=== PATIENT | female | born 1945 | race Caucasian/White ===

== ENCOUNTER 2018-04-12 13:49 | Inpatient (IN) | payer OTHER ==
[~2018-04-12] VITALS: Ht 154.9 cm; Wt 89.0 kg
[2018-04-12 14:06] VITALS: Ht 154.9 cm; Wt 89.0 kg
[2018-04-12 15:02] LABS: BASOPHIL % 0.4 % (0-2); PLATELET COUNT 206 x10^3mcL (130-400); RED CELL DISTRIBUTION WIDTH 13.8 % (11.5-14.5)
[2018-04-12 15:05] LABS: CALCIUM 7.9 mg/dL (8.5-10.1); CARBON DIOXIDE 19.4 mmol/L (21-32); CHLORIDE SERUM 103 mmol/L (98-107); CREATININE SERUM 0.8 mg/dL (0.6-1.0); GLUCOSE SERUM 129 mg/dL (74-106); POTASSIUM SERUM 3.7 mmol/L (3.5-5.1); SODIUM SERUM 136 mmol/L (136-145)
[2018-04-12 15:10] LABS: ALBUMIN 3.3 g/dL (3.4-5.0); ALKALINE PHOSPHATASE 107 U/L (46-116); ALT/SGPT 39 U/L (14-59); AST/SGOT 36 U/L (15-37); BILIRUBIN TOTAL 0.7 mg/dL (0.20-1.00); CHOLESTEROL 158 mg/dL (<200); HDL CHOLESTEROL 26 mg/dL (40-60); PHOSPHOROUS 3.8 mg/dL (2.5-4.9); TOTAL PROTEIN, SERUM 6.9 g/dL (6.4-8.2); URIC ACID 6.4 mg/dL (2.6-6.0)
[2018-04-12] MEDS ORDERED: METFORMIN HYDR500 M1 PO (18:30)
[2018-04-12] MEDS ORDERED: GLUCOTROL5 MG PO (18:31)
[2018-04-12] MEDS ORDERED: DITROPAN XL10 MG PO (18:31)
[2018-04-12] MEDS ORDERED: COZAAR100 MG PO (18:31)
[2018-04-12] MEDS ORDERED: ASPIR 8181 MG PO (18:32)
[2018-04-12] MEDS ORDERED: VERAPAMIL HYDR240 MG PO (18:32)
[2018-04-12] MEDS ORDERED: D-10001 TAB PO (18:33)
[2018-04-12 18:59] VITALS: BP 132/90
[2018-04-12 19:00] VITALS: BP 129/78
[2018-04-12 21:01] VITALS: BP 124/75
[2018-04-13 05:05] VITALS: BP 107/71
[2018-04-13 07:20] LABS: BASOPHIL % 0.4 % (0-2); PLATELET COUNT 183 x10^3mcL (130-400); RED CELL DISTRIBUTION WIDTH 14.3 % (11.5-14.5)
[2018-04-13 07:30] LABS: ALKALINE PHOSPHATASE 79 U/L (46-116); ALT/SGPT 31 U/L (14-59); AST/SGOT 28 U/L (15-37); BILIRUBIN TOTAL 0.4 mg/dL (0.20-1.00); CALCIUM 7.1 mg/dL (8.5-10.1); CARBON DIOXIDE 23.2 mmol/L (21-32); CHLORIDE SERUM 105 mmol/L (98-107); CREATININE SERUM 0.9 mg/dL (0.6-1.0); GLUCOSE SERUM 138 mg/dL (74-106); SODIUM SERUM 137 mmol/L (136-145)
[2018-04-13 07:37] LABS: ALBUMIN 2.8 g/dL (3.4-5.0); TOTAL PROTEIN, SERUM 5.8 g/dL (6.4-8.2)
[2018-04-13 09:28] VITALS: BP 115/63
[2018-04-13 18:05] VITALS: BP 130/72
[2018-04-13 21:12] VITALS: BP 128/67
[2018-04-14 05:32] VITALS: BP 114/69
[2018-04-14 05:51] LABS: BASOPHIL % 0.2 % (0-2); PLATELET COUNT 179 x10^3mcL (130-400); RED CELL DISTRIBUTION WIDTH 14.1 % (11.5-14.5)
[2018-04-14 05:54] LABS: ALKALINE PHOSPHATASE 77 U/L (46-116); ALT/SGPT 36 U/L (14-59); AST/SGOT 40 U/L (15-37); BILIRUBIN TOTAL 0.34 mg/dL (0.20-1.00); CALCIUM 8.2 mg/dL (8.5-10.1); CARBON DIOXIDE 23.6 mmol/L (21-32); CHLORIDE SERUM 107 mmol/L (98-107); CREATININE SERUM 0.8 mg/dL (0.6-1.0); GLUCOSE SERUM 133 mg/dL (74-106); POTASSIUM SERUM 4.2 mmol/L (3.5-5.1); SODIUM SERUM 137 mmol/L (136-145)
[2018-04-14 05:59] LABS: ALBUMIN 2.7 g/dL (3.4-5.0); TOTAL PROTEIN, SERUM 5.8 g/dL (6.4-8.2)
[2018-04-14 10:13] VITALS: BP 112/68
[2018-04-14 13:42] VITALS: BP 105/70
[2018-04-14 17:20] VITALS: BP 90/48
[2018-04-14 17:27] VITALS: BP 103/49
[2018-04-14 20:00] VITALS: BP 102/52
[2018-04-15 06:01] VITALS: BP 100/61
[2018-04-15 06:06] VITALS: BP 105/62
[2018-04-15 09:38] VITALS: BP 102/54
[2018-04-15 11:00] LABS: BASOPHIL % 0.3 % (0-2); PLATELET COUNT 189 x10^3mcL (130-400); RED CELL DISTRIBUTION WIDTH 14.1 % (11.5-14.5)
[2018-04-15 12:18] VITALS: BP 131/69
[2018-04-15 13:52] VITALS: BP 131/69
== END 2018-04-15 16:00 | disposition short-term general hospital (02) | DRG 377 ==
LOC: ED 13:49 → DU 17:48
PROVIDERS: Emergency Medicine; Internal Medicine Nephrology; Internal Medicine Pulmonary Disease
DX: K92.2 Gastrointestinal hemorrhage, unspecified (principal); Q25.72 Congenital pulmonary arteriovenous malformation; J96.11 Chronic respiratory failure with hypoxia; E11.9 Type 2 diabetes mellitus without complications; E78.00 Pure hypercholesterolemia, unspecified; I10 Essential (primary) hypertension; Z68.35 Body mass index [BMI] 35.0-35.9, adult; Z79.82 Long term (current) use of aspirin; Z79.84 Long term (current) use of oral hypoglycemic drugs
CPT/HCPCS: 83880; J7030; Q0092; Q9967